=== PATIENT | female | born 1945 | race Caucasian/White ===

== ENCOUNTER → 2016-08-31 | Outpatient (CLI) | payer MEDICARE, BC ==
[~2016-08-31] MED LIST: AUGMENTIN875 MG PO; BAYER ASPIRIN325 M1 PO; CINNAMON PLUS1 EACH PO; CO Q10100 MG PO; FISH OIL 1,001000 M2 PO; GLIPIZIDE XL5 MG PO; GLUCOTROL XL5 M1 PO; IBUPROFEN800 MG PO; MAGNESIUM500 MG PO; METFORMIN HCL1000 M1 PO; POTASSIUM GLUC500 MG PO; SUPER B-50 COM1 EACH PO; SYNTHROID175 MCG PO; VALSARTAN-HCTZ1 EAC4 PO; VISION ESSENTIAL PO; VITAMIN B3; VITAMIN C W/R1000 M1 PO; VITAMIN E400 UNI4 PO
--- NOTE | ~2016-08-31 | US6 ---
[facility] A Service of [facility] / [facility] RADIOLOGY TEXT RESULTS PATIENT: RACHEL WOODWARD LOCATION: [facility] : 47 UNIT #: [id number] AGE: [address]: Piyush Pro MD SEX: F ORDER DR: [id number] [place], [place] [address] [id number] O MR#: [id number] #: [id number] NAME: RACHEL WOODWARD : 1945 SEX: F STUDY DATE/TIME: 08/31/2016 9:58 UNIT: CGUS ROOM: STUDY DESCRIPTION: US Abdominal Limited Attending Physician: Piyush Pro M.D. Referring Physician: Piyush Pro M.D. Ordering Physician: Piyush Pro M.D. Primary Care Physician: Christa Desir M.D. MEDICAL IMAGING REPORT This report is preliminary unless electronic signature is present EXAM Right upper quadrant abdominal ultrasound INDICATIONS Right upper quadrant abdominal pain for the past several years. PROCEDURE Faria-scale and Doppler imaging right upper quadrant of the abdomen. COMPARISON STUDIES None. COMPARISON None FINDINGS Visualized portion of pancreas unremarkable. Right kidney measures 11.2 cm. There is a 3.6 cm cyst in the right kidney. The liver measures 16.6 cm. No liver mass on submitted images. Common duct measures 6 mm. IMPRESSION 1. Previous cholecystectomy. 2. Right renal cyst. 3. No acute findings. 1. Dictated by... Dillon Gant M.D. THIS IS AN ELECTRONICALLY VERIFIED REPORT Dillon Gant M.D. at 09/01/2016 2:17 PM EED/eula [facility] A Service of [facility] / [facility] RADIOLOGY TEXT RESULTS PATIENT: RACHEL WOODWARD LOCATION: [facility] : 47 UNIT #: [id number] AGE: [address]: Piyush Pro MD SEX: F ORDER DR: TD: 08/31/2016 12:06 JOB #: [id number] MEDICAL IMAGING REPORT Page 1 of 1 COPY
== END | disposition home or self-care (01) ==
LOC: CGUS 09:40
DX: R10.11 Right upper quadrant pain (principal); N28.1 Cyst of kidney, acquired; Z90.49 Acquired absence of other specified parts of digestive tract
CPT/HCPCS: 76705

== ENCOUNTER → 2016-09-21 | Day surgery (SDC) | payer MEDICARE, BC ==
--- NOTE | ~2016-09-21 | OR ---
Unit #: [id number] #: [id number] Patient: RACHEL WOODWARD 192922 [address] [address] [id number] O MR#: [id number] NAME: RACHEL WOODWARD. ROOM: Date of Procedure: 09/21/2016 Admission Date: 09/21/2016 Surgeon: Piyush Pro M.D. : 1945 Attending Physician: Piyush Pro M.D. Primary Care Physician: Christa Desir M.D. OPERATIVE REPORT PROCEDURES PERFORMED Colonoscopy with snare polypectomy, colonoscopy with hemoclip application. INDICATIONS FOR PROCEDURE A 71-year-old female with average risk for colorectal cancer. MEDICATIONS Monitored anesthesia. POSTOPERATIVE FINDINGS 1. 2 to 3 cm polyp, cecum right next to the ileocecal valve. It was snared and sent for histopathology. 2. Hemoclip applied to the area to ensure hemostasis. 3. Rest of the colon exam shows no other polyps or masses. Diverticulosis was noted. PLAN Follow up on the pathology report. Given the size of the polyp, recommend a repeat colonoscopy in 1 year. DESCRIPTION OF PROCEDURE The patient was explained of the procedure, risks, and benefits along with the risks and benefits of anesthesia. She was brought to the endoscopy room. Propofol anesthesia was given. Rectal exam was done, which was normal. Colonoscope was lubricated, passed up the rectum, advanced under direct vision all the way to the cecum. Cecum was identified by ileocecal valve and appendiceal orifice. Large polyp seen in cecum was snared as described. Hemoclips applied. Scope was then gently carefully withdrawn. No other polyps or masses were seen. Diverticulosis noted. I retroflexed in the rectum, small hemorrhoids noted. The scope was pulled out. She tolerated it well. Dictated by... Shamika Urban/osbaldo TD: 09/21/2016 23:46 JOB #: [id number] Unit #: [id number] #: [id number] Patient: RACHEL WOODWARD OPERATIVE REPORT Page 1 of 1 X Piyush Pro MD PROCEDURE OPERATIVE NOTE
== END | disposition home or self-care (01) ==
LOC: COPS 08:51
DX: Z12.11 Encounter for screening for malignant neoplasm of colon (principal); D12.0 Benign neoplasm of cecum; K57.30 Diverticulosis of large intestine without perforation or abscess without bleeding; K64.9 Unspecified hemorrhoids; E11.9 Type 2 diabetes mellitus without complications; E03.9 Hypothyroidism, unspecified; I10 Essential (primary) hypertension; Z88.5 Allergy status to narcotic agent; Z88.8 Allergy status to other drugs, medicaments and biological substances; Z91.048 Other nonmedicinal substance allergy status; Z79.84 Long term (current) use of oral hypoglycemic drugs; Z79.82 Long term (current) use of aspirin; Z79.899 Other long term (current) drug therapy; Z90.49 Acquired absence of other specified parts of digestive tract
CPT/HCPCS: 82947; 88305